=== PATIENT | male | born 1955 | race Caucasian/White ===

== ENCOUNTER 2021-03-14 23:56 | Inpatient (IN) | payer MEDICARE ==
[~2021-03-14] VITALS: Ht 195.6 cm; Wt 128.4 kg
[~2021-03-14 23:56] MED LIST: ASPIR 8181 MG PO; LEVOTHYROXINE200 MC1 PO; LISINOPRIL-HCT1 EAC6 PO; NORCO 10MG-325MG1 EA PO; PLAVIX75 MG PO; Z.0.SIMVASTATIN20 MG PO; Z.2.METFORMIN HCL500 PO
[2021-03-14] MEDS ORDERED: ALBUTEROL SULF 0.083% NEB SOLN 3 ML NEB NEB STA (23:59)
[2021-03-15] VITALS (20 sets, daily range): BP systolic 96–159; BP diastolic 46–84
[2021-03-15] MEDS ORDERED: IPRATROPIUM BROMIDE 0.02% 2.5 ML NEB NEB ONE
[2021-03-15 00:15] LABS: BASOPHILS % 0.3 % (0.0-1.0); EOSINOPHILS # (AUTO) 0.1 (0.0-0.4); EOSINOPHILS % 0.7 % (0.0-6.0); HEMATOCRIT 45.9 % (38.2-49.6); HEMOGLOBIN 14.3 g/dL (14.0-18.0); LYMPHOCYTES # (AUTO) 0.7 (1.0-3.2); LYMPHOCYTES % 5.6 % (18.0-39.1); MEAN CORPUSCULAR HEMOGLOBIN 32.5 pg (28-32); MEAN CORPUSCULAR HGB CONC 31.2 g/dL (31-35); MEAN CORPUSCULAR VOLUME 104.3 fL (81-99); MONOCYTES # (AUTO) 0.9 (0.2-0.8); MONOCYTES % 7.6 % (4.4-11.3); NEUTROPHILS # (AUTO) 10.2 (2.1-6.9); PLATELET COUNT 212 x10e3/uL (140-360); RED CELL DISTRIBUTION WIDTH 14.9 % (11.7-14.4)
[2021-03-15 00:33] LABS: ALBUMIN 3.8 g/dL (3.5-5.0); ALBUMIN/GLOBULIN RATIO 1.1 (0.8-2.0); ANION GAP 13.9 mmol/L (8-16); CALCIUM 8.5 mg/dL (8.4-10.2); CREATININE, SERUM 1.18 mg/dL (0.72-1.25); POTASSIUM 3.9 mmol/L (3.5-5.1)
[2021-03-15 00:40] LABS: CREATINE KINASE MB 10.1 ng/mL (0-5.0)
[2021-03-15] MEDS ORDERED: PROPOFOL IV EMULSION 50 ML IV ONE ×2 (01:13→03:11)
[2021-03-15 01:17] LABS: CLARITY,URINE SL CLOUDY (CLEAR); COLOR,URINE YELLOW (YELLOW); KETONES,URINE NEGATIVE (NEGATIVE); LEUKOCYTE ESTERASE ,URINE NEGATIVE (NEGATIVE); NITRITE,URINE NEGATIVE (NEGATIVE); PROTEIN,URINE DIPSTICK 1+ (NEGATIVE)
[2021-03-15 01:20] LABS: AMPHETAMINES SCREEN,URINE NEGATIVE (NEGATIVE); BENZODIAZEPINES SCREEN,URINE NEGATIVE (NEGATIVE); PHENCYCLIDINE SCREEN,URINE NEGATIVE (NEGATIVE)
[2021-03-15 01:22] LABS: BACTERIA,URINE FEW /HPF; EPITHELIAL CELLS,URINE RARE /LPF; RBC,URINE 21-50 /HPF (0-5); WBC,URINE (MAN) 0-5 /HPF (0-5)
[2021-03-15] MEDS: PROPOFOL IV EMULSION 10MG/ML 100 ML IV SCH ×2 (01:30→06:30)
[2021-03-15] MEDS ORDERED: SODIUM CHLORIDE 0.9% 1000ML 1,000 ML IV ONE (01:45)
[2021-03-15] MEDS ORDERED: SODIUM CHLORIDE 0.9% 1000ML 1,000 ML IV SCH (01:45)
[2021-03-15] MEDS ORDERED: SODIUM CHLORIDE 0.9% 50ML 50 ML ONE (01:58)
[2021-03-15] MEDS ORDERED: IOPAMIDOL 370 MG/ML 200 ML INFUS..BTL INJ ONE (01:58)
[2021-03-15] MEDS ORDERED: FENTANYL 2000MCG/NS 250 250 ML ONE (02:05)
[2021-03-15] MEDS ORDERED: FENTANYL 2000MCG/NS 250 250 ML IV SCH (02:30)
[2021-03-15] MEDS: CEFTRIAXONE 1 GM in SODIUM CHLORIDE 0.9% 50ML 50 ML IV SCH ×2 (02:30→08:39)
[2021-03-15] MEDS: NOREPINEPHRINE 8 MG/D5W 250 ML 250 ML IV SCH (03:30)
[2021-03-15] MEDS ORDERED: ACETAMINOPHEN 650 MG SUPP PR PRN (03:30)
[2021-03-15] MEDS: ALBUTEROL SULF 0.083% NEB SOLN 3 ML NEB NEB SCH ×6 (03:30→23:35)
[2021-03-15 03:58] LABS: ABG PH 7.36 (7.35-7.45)
[2021-03-15 03:59] LABS: ABG PCO2 67 mmHg (35-45); ABG PO2 79 mmHg (80-105)
[2021-03-15 04:00] LABS: ABG HCO3 38 mmol/L (22-26); ABG TCO2 40
[2021-03-15 04:04] LABS: ABG PH 7.27 (7.35-7.45)
[2021-03-15 04:05] LABS: ABG HCO3 43 mmol/L (22-26); ABG PCO2 94 mmHg (35-45); ABG PO2 147 mmHg (80-105); ABG TCO2 46
[2021-03-15] MEDS: IPRATROPIUM BROMIDE 0.02% 2.5 ML NEB NEB SCH ×4 (06:00→19:45)
[2021-03-15] MEDS ORDERED: IPRATROPIUM BROMIDE 0.02% 2.5 ML NEB ONE (06:45)
[2021-03-15] MEDS ORDERED: DEXTROSE 50% SYRINGE 50 ML IV PRN (08:00)
[2021-03-15] MEDS: LEVOTHYROXINE SODIUM 125 MCG TAB PO SCH (08:39)
[2021-03-15] MEDS: CLOPIDOGREL BISULFATE 75 MG TAB PO SCH (08:39)
[2021-03-15] MEDS: METHYLPREDNISOLONE SOD SUCC 40 MG/ML VIAL 1ML IV SCH ×2 (08:39→21:16)
[2021-03-15] MEDS ORDERED: INSULIN REGULAR, HUMAN 100 UNIT/1 ML SQ SCH (11:30)
[2021-03-15] MEDS ORDERED: ETOMIDATE 2 MG/ML 10 ML INJ IV ONE (13:19)
[2021-03-15] MEDS ORDERED: SUCCINYLCHOLINE CHLORIDE 20 MG/ML 10ML VIAL ONE (13:19)
[2021-03-16] VITALS (23 sets, daily range): BP systolic 109–163; BP diastolic 48–100
[2021-03-16] MEDS: NOREPINEPHRINE 8 MG/D5W 250 ML 250 ML IV SCH (03:30)
[2021-03-16] MEDS: ALBUTEROL SULF 0.083% NEB SOLN 3 ML NEB NEB SCH ×6 (04:35→22:55)
[2021-03-16] MEDS: IPRATROPIUM BROMIDE 0.02% 2.5 ML NEB NEB SCH ×4 (04:35→19:40)
[2021-03-16 04:59] LABS: BASOPHILS % 0.2 % (0.0-1.0); HEMATOCRIT 43.7 % (38.2-49.6); HEMOGLOBIN 13.4 g/dL (14.0-18.0); LYMPHOCYTES # (AUTO) 0.3 (1.0-3.2); LYMPHOCYTES % 2.7 % (18.0-39.1); MEAN CORPUSCULAR HEMOGLOBIN 32.7 pg (28-32); MEAN CORPUSCULAR HGB CONC 30.7 g/dL (31-35); MEAN CORPUSCULAR VOLUME 106.6 fL (81-99); MONOCYTES # (AUTO) 0.7 (0.2-0.8); MONOCYTES % 5.9 % (4.4-11.3); NEUTROPHILS # (AUTO) 11.2 (2.1-6.9); PLATELET COUNT 193 x10e3/uL (140-360)
[2021-03-16 05:23] LABS: ALBUMIN 3.2 g/dL (3.5-5.0); ALBUMIN/GLOBULIN RATIO 1.1 (0.8-2.0); ANION GAP 11.4 mmol/L (8-16); CALCIUM 7.9 mg/dL (8.4-10.2); CREATININE, SERUM 1.07 mg/dL (0.72-1.25); POTASSIUM 4.4 mmol/L (3.5-5.1)
[2021-03-16] MEDS: LEVOTHYROXINE SODIUM 125 MCG TAB PO SCH (06:00)
[2021-03-16] MEDS: CLOPIDOGREL BISULFATE 75 MG TAB PO SCH (08:53)
[2021-03-16] MEDS: CEFTRIAXONE 1 GM in SODIUM CHLORIDE 0.9% 50ML 50 ML IV SCH (08:53)
[2021-03-16] MEDS: METHYLPREDNISOLONE SOD SUCC 40 MG/ML VIAL 1ML IV SCH ×2 (08:53→21:18)
[2021-03-16] MEDS: ALBUTEROL SULF 0.083% NEB SOLN 3 ML NEB NEB PRN ×2 (14:15→17:33)
[2021-03-17] VITALS (18 sets, daily range): BP systolic 117–161; BP diastolic 58–76
[2021-03-17] MEDS: ALBUTEROL SULF 0.083% NEB SOLN 3 ML NEB NEB SCH ×6 (00:55→20:45)
[2021-03-17] MEDS: IPRATROPIUM BROMIDE 0.02% 2.5 ML NEB NEB SCH ×5 (02:10→20:45)
[2021-03-17 05:00] LABS: BASOPHILS % 0.2 % (0.0-1.0); HEMATOCRIT 43.7 % (38.2-49.6); HEMOGLOBIN 13.5 g/dL (14.0-18.0); LYMPHOCYTES # (AUTO) 0.4 (1.0-3.2); LYMPHOCYTES % 3.9 % (18.0-39.1); MEAN CORPUSCULAR HEMOGLOBIN 32.5 pg (28-32); MEAN CORPUSCULAR HGB CONC 30.9 g/dL (31-35); MEAN CORPUSCULAR VOLUME 105.3 fL (81-99); MONOCYTES # (AUTO) 0.4 (0.2-0.8); MONOCYTES % 4.5 % (4.4-11.3); NEUTROPHILS # (AUTO) 8.3 (2.1-6.9); NEUTROPHILS % 90.5 % (38.7-80.0); PLATELET COUNT 188 x10e3/uL (140-360); RED BLOOD COUNT 4.15 x10e6/uL (4.3-5.7); RED CELL DISTRIBUTION WIDTH 14.7 % (11.7-14.4)
[2021-03-17 05:27] LABS: ALBUMIN 3.2 g/dL (3.5-5.0); ANION GAP 9.6 mmol/L (8-16); CALCIUM 8.1 mg/dL (8.4-10.2); CREATININE, SERUM 0.98 mg/dL (0.72-1.25); POTASSIUM 4.6 mmol/L (3.5-5.1)
[2021-03-17] MEDS: LEVOTHYROXINE SODIUM 125 MCG TAB PO SCH (05:52)
[2021-03-17] MEDS: AMLODIPINE BESYLATE 5 MG TAB PO SCH (09:02)
[2021-03-17] MEDS: CLOPIDOGREL BISULFATE 75 MG TAB PO SCH (09:02)
[2021-03-17] MEDS: CEFTRIAXONE 1 GM in SODIUM CHLORIDE 0.9% 50ML 50 ML IV SCH (09:02)
[2021-03-17] MEDS: ASPIRIN 81 MG CHEW TAB PO SCH (09:02)
[2021-03-17] MEDS: METHYLPREDNISOLONE SOD SUCC 40 MG/ML VIAL 1ML IV SCH ×2 (09:02→21:01)
[2021-03-17] MEDS: ATORVASTATIN 40 MG TAB PO SCH (09:51)
[2021-03-17] MEDS: ZOLPIDEM TARTRATE 5 MG TAB PO PRN (21:02)
[2021-03-18] VITALS (7 sets, daily range): BP systolic 128–140; BP diastolic 58–72
[2021-03-18] MEDS: ALBUTEROL SULF 0.083% NEB SOLN 3 ML NEB NEB SCH ×6 (03:40→23:40)
[2021-03-18] MEDS: IPRATROPIUM BROMIDE 0.02% 2.5 ML NEB NEB SCH ×4 (03:40→19:50)
[2021-03-18 04:57] LABS: BASOPHILS % 0.1 % (0.0-1.0); HEMATOCRIT 42.3 % (38.2-49.6); HEMOGLOBIN 12.9 g/dL (14.0-18.0); LYMPHOCYTES # (AUTO) 0.5 (1.0-3.2); LYMPHOCYTES % 5.7 % (18.0-39.1); MEAN CORPUSCULAR HEMOGLOBIN 32.5 pg (28-32); MEAN CORPUSCULAR HGB CONC 30.5 g/dL (31-35); MEAN CORPUSCULAR VOLUME 106.5 fL (81-99); MONOCYTES # (AUTO) 0.5 (0.2-0.8); MONOCYTES % 5.3 % (4.4-11.3); NEUTROPHILS # (AUTO) 7.5 (2.1-6.9); NEUTROPHILS % 88.3 % (38.7-80.0); PLATELET COUNT 183 x10e3/uL (140-360); RED BLOOD COUNT 3.97 x10e6/uL (4.3-5.7); RED CELL DISTRIBUTION WIDTH 14.5 % (11.7-14.4)
[2021-03-18 05:17] LABS: ANION GAP 11.7 mmol/L (8-16); CREATININE, SERUM 1.02 mg/dL (0.72-1.25); POTASSIUM 4.7 mmol/L (3.5-5.1)
[2021-03-18] MEDS: LEVOTHYROXINE SODIUM 125 MCG TAB PO SCH (06:53)
[2021-03-18] MEDS: CEFTRIAXONE 1 GM in SODIUM CHLORIDE 0.9% 50ML 50 ML IV SCH (08:51)
[2021-03-18] MEDS: ATORVASTATIN 40 MG TAB PO SCH (08:52)
[2021-03-18] MEDS: METHYLPREDNISOLONE SOD SUCC 40 MG/ML VIAL 1ML IV SCH ×2 (08:52→20:14)
[2021-03-18] MEDS: ASPIRIN 81 MG CHEW TAB PO SCH (08:52)
[2021-03-18] MEDS: AMLODIPINE BESYLATE 5 MG TAB PO SCH (08:52)
[2021-03-18] MEDS: CLOPIDOGREL BISULFATE 75 MG TAB PO SCH (08:52)
[2021-03-18] MEDS: BUDESONIDE/FORMOTEROL 160/4.5MCG INHALER INH SCH (19:00)
[2021-03-18] MEDS: ZOLPIDEM TARTRATE 5 MG TAB PO PRN (20:14)
[2021-03-18] MEDS: SODIUM CHLORIDE 0.9% 1000ML 1,000 ML IV SCH (21:27)
[2021-03-19] VITALS (8 sets, daily range): BP systolic 111–140; BP diastolic 50–74
[2021-03-19] MEDS: IPRATROPIUM BROMIDE 0.02% 2.5 ML NEB NEB SCH ×5 (03:55→23:10)
[2021-03-19] MEDS: ALBUTEROL SULF 0.083% NEB SOLN 3 ML NEB NEB SCH ×6 (03:55→23:10)
[2021-03-19] MEDS: SODIUM CHLORIDE 0.9% 1000ML 1,000 ML IV SCH ×2 (05:38→15:28)
[2021-03-19] MEDS: LEVOTHYROXINE SODIUM 125 MCG TAB PO SCH (05:38)
[2021-03-19 05:43] LABS: BASOPHILS % 0.1 % (0.0-1.0); HEMATOCRIT 38.4 % (38.2-49.6); HEMOGLOBIN 12.2 g/dL (14.0-18.0); LYMPHOCYTES # (AUTO) 0.6 (1.0-3.2); LYMPHOCYTES % 7.9 % (18.0-39.1); MEAN CORPUSCULAR HEMOGLOBIN 32.1 pg (28-32); MEAN CORPUSCULAR HGB CONC 31.8 g/dL (31-35); MEAN CORPUSCULAR VOLUME 101.1 fL (81-99); MONOCYTES # (AUTO) 0.6 (0.2-0.8); MONOCYTES % 7.8 % (4.4-11.3); NEUTROPHILS % 83.6 % (38.7-80.0); PLATELET COUNT 171 x10e3/uL (140-360); RED CELL DISTRIBUTION WIDTH 14.3 % (11.7-14.4)
[2021-03-19 06:14] LABS: INR 1.01; PROTHROMBIN TIME 14.1 seconds (11.9-14.5)
[2021-03-19 06:15] LABS: PARTIAL THROMBOPLASTIN TIME 28.5 seconds (23.8-35.5)
[2021-03-19 06:18] LABS: ANION GAP 10.5 mmol/L (8-16); CREATININE, SERUM 0.88 mg/dL (0.72-1.25); POTASSIUM 4.5 mmol/L (3.5-5.1)
[2021-03-19] MEDS: BUDESONIDE/FORMOTEROL 160/4.5MCG INHALER INH SCH ×2 (07:00→19:30)
[2021-03-19] MEDS: METHYLPREDNISOLONE SOD SUCC 40 MG/ML VIAL 1ML IV SCH ×2 (08:56→20:54)
[2021-03-19] MEDS: ATORVASTATIN 40 MG TAB PO SCH (08:56)
[2021-03-19] MEDS: CEFTRIAXONE 1 GM in SODIUM CHLORIDE 0.9% 50ML 50 ML IV SCH (08:56)
[2021-03-19] MEDS: ASPIRIN 81 MG CHEW TAB PO SCH (08:56)
[2021-03-19] MEDS: AMLODIPINE BESYLATE 5 MG TAB PO SCH (08:57)
[2021-03-19] MEDS ORDERED: ASPIRIN 81 MG CHEW TAB PO SCH (09:00)
[2021-03-19] MEDS: CLOPIDOGREL BISULFATE 75 MG TAB PO SCH (11:26)
[2021-03-19] MEDS: ZOLPIDEM TARTRATE 5 MG TAB PO PRN (20:54)
[2021-03-20] VITALS (8 sets, daily range): BP systolic 130–145; BP diastolic 57–81
[2021-03-20] MEDS: SODIUM CHLORIDE 0.9% 1000ML 1,000 ML IV SCH ×4 (00:33→14:48)
[2021-03-20] MEDS: ALBUTEROL SULF 0.083% NEB SOLN 3 ML NEB NEB SCH ×6 (02:55→23:10)
[2021-03-20] MEDS: LEVOTHYROXINE SODIUM 125 MCG TAB PO SCH (05:48)
[2021-03-20 06:14] LABS: HEMATOCRIT 41.9 % (38.2-49.6); LYMPHOCYTES # (AUTO) 0.4 (1.0-3.2); LYMPHOCYTES % 5.4 % (18.0-39.1); MEAN CORPUSCULAR HEMOGLOBIN 32.3 pg (28-32); MEAN CORPUSCULAR VOLUME 104.2 fL (81-99); MONOCYTES # (AUTO) 0.5 (0.2-0.8); MONOCYTES % 6.2 % (4.4-11.3); NEUTROPHILS # (AUTO) 6.7 (2.1-6.9); NEUTROPHILS % 88.1 % (38.7-80.0); PLATELET COUNT 174 x10e3/uL (140-360); RED BLOOD COUNT 4.02 x10e6/uL (4.3-5.7); RED CELL DISTRIBUTION WIDTH 14.2 % (11.7-14.4)
[2021-03-20 06:51] LABS: ALBUMIN 2.9 g/dL (3.5-5.0); ALBUMIN/GLOBULIN RATIO 1.1 (0.8-2.0); ANION GAP 11.6 mmol/L (8-16); CALCIUM 8.4 mg/dL (8.4-10.2); CREATININE, SERUM 0.83 mg/dL (0.72-1.25); POTASSIUM 4.6 mmol/L (3.5-5.1)
[2021-03-20] MEDS: IPRATROPIUM BROMIDE 0.02% 2.5 ML NEB NEB SCH ×3 (06:53→20:05)
[2021-03-20] MEDS: BUDESONIDE/FORMOTEROL 160/4.5MCG INHALER INH SCH ×2 (06:53→20:05)
[2021-03-20] MEDS: ATORVASTATIN 40 MG TAB PO SCH (09:00)
[2021-03-20] MEDS: CLOPIDOGREL BISULFATE 75 MG TAB PO SCH (09:00)
[2021-03-20] MEDS: AMLODIPINE BESYLATE 5 MG TAB PO SCH (09:00)
[2021-03-20] MEDS: ASPIRIN 81 MG CHEW TAB PO SCH (09:00)
[2021-03-20] MEDS: CEFTRIAXONE 1 GM in SODIUM CHLORIDE 0.9% 50ML 50 ML IV SCH (09:47)
[2021-03-20] MEDS: METHYLPREDNISOLONE SOD SUCC 40 MG/ML VIAL 1ML IV SCH ×2 (09:47→20:52)
[2021-03-20] MEDS ORDERED: FENTANYL CITRATE/PF 100MCG/2 ML INJ ONE (10:07)
[2021-03-20] MEDS ORDERED: LIDOCAINE HCL 2% LOCAL 20 ML VIAL ONE (10:07)
[2021-03-20] MEDS ORDERED: MIDAZOLAM HCL 2 MG/2 ML VIAL ONE (10:07)
[2021-03-20] MEDS ORDERED: SODIUM CHLORIDE 0.9% 1000ML 1,000 ML ONE (10:08)
[2021-03-20] MEDS ORDERED: HEPARIN SOD/SOD CHLORIDE 2,000 ML ONE (10:08)
[2021-03-20] MEDS ORDERED: IOPAMIDOL 300MG/ML 100 ML INFUS..BTL IV ONE (10:08)
[2021-03-20] MEDS ORDERED: ACETAMINOPHEN 325 MG TAB ONE (11:36)
[2021-03-20] MEDS ORDERED: LIPITOR20 MG PO (11:58)
[2021-03-20] MEDS ORDERED: LEVOTHYROXINE112 MCG PO (11:58)
[2021-03-20] MEDS ORDERED: COMBIVENT RESPIM4 GM IH (11:58)
[2021-03-20] MEDS ORDERED: ANORO ELLIPTA1 EACH IH (11:58)
[2021-03-20] MEDS ORDERED: METOPROLOL TART25 MG PO (11:58)
[2021-03-20] MEDS ORDERED: CILOSTAZOL100 MG PO (11:58)
[2021-03-20] MEDS ORDERED: Morphine 2mg Syringe 2 MG/ML SYR IV ONE (12:00)
[2021-03-20] MEDS: ZOLPIDEM TARTRATE 5 MG TAB PO PRN (20:53)
[2021-03-21] VITALS: BP 115/68
[2021-03-21] MEDS: IPRATROPIUM BROMIDE 0.02% 2.5 ML NEB NEB SCH ×2 (02:12→07:00)
[2021-03-21] MEDS: ALBUTEROL SULF 0.083% NEB SOLN 3 ML NEB NEB SCH ×3 (02:12→10:40)
[2021-03-21] MEDS ORDERED: AZITHROMYCIN 250 MG TAB PO SCH (02:30)
[2021-03-21 04:00] VITALS: BP 125/53
[2021-03-21] MEDS: LEVOTHYROXINE SODIUM 125 MCG TAB PO SCH (05:37)
[2021-03-21] MEDS: BUDESONIDE/FORMOTEROL 160/4.5MCG INHALER INH SCH (07:00)
[2021-03-21 07:42] VITALS: BP 125/53
[2021-03-21] MEDS: AMLODIPINE BESYLATE 5 MG TAB PO SCH (08:04)
[2021-03-21] MEDS: METHYLPREDNISOLONE SOD SUCC 40 MG/ML VIAL 1ML IV SCH (08:04)
[2021-03-21] MEDS: CLOPIDOGREL BISULFATE 75 MG TAB PO SCH (08:04)
[2021-03-21] MEDS: ASPIRIN 81 MG CHEW TAB PO SCH (08:04)
[2021-03-21] MEDS: ATORVASTATIN 40 MG TAB PO SCH (08:04)
[2021-03-21] MEDS: CEFTRIAXONE 1 GM in SODIUM CHLORIDE 0.9% 50ML 50 ML IV SCH (08:04)
[2021-03-21 08:18] VITALS: BP 154/76
[2021-03-21 12:12] VITALS: BP 149/64
== END 2021-03-21 14:15 | disposition home or self-care (01) | DRG 871 ==
LOC: ER 03-15 → ERHOLD 03-15 03:24 → ICU 03-15 04:46 → MED/SURG2 03-17 13:35
PROVIDERS: ADMIT Internal Medicine; ATTEND Internal Medicine
PROC: 02HV33Z Insertion of Infusion Device into Superior Vena Cava, Percutaneous Approach (ICD-10-PCS; principal; 2021-03-15)
PROC: 5A1935Z Respiratory Ventilation, Less than 24 Consecutive Hours (ICD-10-PCS; 2021-03-15)
PROC: 0BH17EZ Insertion of Endotracheal Airway into Trachea, Via Natural or Artificial Opening (ICD-10-PCS; 2021-03-15)
PROC: B4101ZZ Fluoroscopy of Abdominal Aorta using Low Osmolar Contrast (ICD-10-PCS; 2021-03-20)
PROC: B41G1ZZ Fluoroscopy of Left Lower Extremity Arteries using Low Osmolar Contrast (ICD-10-PCS; 2021-03-20)
DX: A41.9 Sepsis, unspecified organism (principal); J18.9 Pneumonia, unspecified organism; J96.21 Acute and chronic respiratory failure with hypoxia; G93.41 Metabolic encephalopathy; J96.02 Acute respiratory failure with hypercapnia; J44.0 Chronic obstructive pulmonary disease with (acute) lower respiratory infection; J44.1 Chronic obstructive pulmonary disease with (acute) exacerbation; I70.92 Chronic total occlusion of artery of the extremities; R41.82 Altered mental status, unspecified; R06.89 Other abnormalities of breathing; Z87.891 Personal history of nicotine dependence; Z20.822 Contact with and (suspected) exposure to COVID-19; E03.9 Hypothyroidism, unspecified; Z95.820 Peripheral vascular angioplasty status with implants and grafts; E78.5 Hyperlipidemia, unspecified; R65.20 Severe sepsis without septic shock; I70.202 Unspecified atherosclerosis of native arteries of extremities, left leg; I11.9 Hypertensive heart disease without heart failure; Z99.81 Dependence on supplemental oxygen
CPT/HCPCS: 31500; 36247; 36415; 36600; 70450; 71045; 71260; 75625; 75716; 76705; 80048; 80053; 80307; 80320; 81001; 82140; 82550; 82553; 82805; 82948; 83605; 83880; 84484; 85025; 85610; 85730; 87040; 93005; 93306; 93925; 94640; 94799; 97139; 99152; 99285; C1769; J0330; J0456; J0696; J2001; J2250; J2270; J2920; J3010; J7030; J7050; Q9967; U0002